=== PATIENT | female | born 1930 | race Caucasian/White ===

== ENCOUNTER → 2016-08-19 | Outpatient (CLI) | payer MEDICARE, OTHER ==
[2016-08-19 11:27] LABS: BASO # 0.1 x10^3/uL (0.0-0.2); BASO % 1 % (0-3); EOS % 3 % (0-3); HEMATOCRIT 44.7 % (36.0-47.0); HEMOGLOBIN 14.9 g/dL (12.0-15.5); LYMPH # 1.9 x10^3/uL (1.0-4.8); LYMPH % 23 % (24-48); MEAN CORPUSCULAR HEMOGLOBIN 31 pg (25-35); MEAN CORPUSCULAR HGB CONC 33 g/dL (31-37); MEAN CORPUSCULAR VOLUME 93 fL (79-100); MONO % 7 % (0-9); NEUT % 67 % (31-73); PLATELET COUNT 229 x10^3/uL (140-400); RED CELL DISTRIBUTION WIDTH 13.3 % (11.5-14.5); WHITE BLOOD COUNT 8.3 x10^3/uL (4.0-11.0)
== END | disposition home or self-care (01) ==
LOC: LAB 11:01
PROVIDERS: ATTEND Family Medicine
DX: R06.09 Other forms of dyspnea (principal)
CPT/HCPCS: 36415; 85027

== ENCOUNTER → 2019-02-07 | Outpatient (CLI) | payer MEDICARE, OTHER ==
--- NOTE | 2019-02-07 14:35 | RAD ---
EXAM: Left hip, 2 views. HISTORY: Bursitis. COMPARISON: None. FINDINGS: 2 views of the left hip are obtained. There is no fracture, dislocation or subluxation. There are vascular calcifications and vascular clips. IMPRESSION: No acute osseous finding. Electronically signed by: Katerine Chau MD (02/07/2019 2:32 PM) [email or web address]
== END | disposition home or self-care (01) ==
LOC: RAD 08:02
PROVIDERS: ATTEND Family Medicine
DX: M25.852 Other specified joint disorders, left hip (principal); M71.552 Other bursitis, not elsewhere classified, left hip
CPT/HCPCS: 73502

== ENCOUNTER → 2020-01-05 | Outpatient (CLI) | payer MEDICARE ==
--- NOTE | 2020-01-05 15:55 | RAD ---
C-spine 5 views INDICATION: Neck pain COMPARISON: None. FINDINGS: AP, lateral, odontoid and bilateral oblique views of the cervical spine were obtained in the upright position. They show subtle anterolisthesis of C5 on C6 and minimal retrolisthesis of C3 on C4. The lateral masses of C1 appear symmetrically aligned with C2 on the odontoid view. The bones are demineralized and show relatively mild multilevel facet hypertrophic changes. Incidental sternotomy sutures are noted. No fracture or aggressive appearing osseous lesions are identified. The odontoid process is somewhat obscured by the occiput on the odontoid view. There are minimal disc degenerative change at C4-C5 and C5-C6, manifested as mild disc space narrowing. No bony central canal stenosis. The oblique views show mild bilateral foraminal narrowing most conspicuous on the right at C2-C3 and C4-C5, and on the left at C4-C5. No prevertebral soft tissue swelling is apparent. IMPRESSION: Multilevel cervical degenerative spondylosis with no acute fracture or aggressive appearing osseous lesions shown on these images. These degenerative changes result in varying degrees of foraminal stenosis. Central canal is not as well evaluated. Note also that the odontoid process is suboptimally visualized on the odontoid view. If there is concern for possible age-indeterminate odontoid process fracture, CT could help assess further. Electronically signed by: Jono Arredondo MD (01/05/2020 3:52 PM) [id number]
== END | disposition home or self-care (01) ==
LOC: RAD 09:14
PROVIDERS: ATTEND Family Medicine
DX: M47.812 Spondylosis without myelopathy or radiculopathy, cervical region (principal); M43.12 Spondylolisthesis, cervical region; M48.02 Spinal stenosis, cervical region
CPT/HCPCS: 72050

== ENCOUNTER → 2020-02-13 | Outpatient (CLI) | payer MEDICARE ==
[~2020-02-13] MED LIST: ALBU2.5V8 IH; AMLO-187 PO; ASPI-630 PO; ATOR20TA58 PO; CARV25TA2 PO; DICL100G54 TP; FAMO20TA5 PO; GLIM1TAB7 PO; HYDR12.575 PO; IOHEXOL 180 MG/ML 10 ML VIAL. ONE; LANS30CA PO; methylPREDNISolone ACETATE 40 MG/ML VIAL. ONE; methylPREDNISolone ACETATE 80 MG/ML VIAL. ONE
--- NOTE | 2020-02-13 12:38 | PDOC1 ---
INITIAL PAIN CONSULT DATE OF SERVICE: DOS: DATE: 02/13/20 TIME: 12:29 CHIEF COMPLAINT: Chief Complaint: Neck and right greater than left upper extremity pain HISTORY OF PRESENT ILLNESS: 89-year-old female presents history of pain base the neck and shoulders upper extremities right greater than left for about 3 years worse over the past 6 months or so with radiating pain in the base the neck shoulders anterior deltoid lateral deltoid biceps into the forearms with numbness in the right hand. Patient reports no specific injury or accident that she is aware of but laying down is the worst is keeps her awake at night as she likes to lay on her right side patient reports it wakes her from sleep release twice a night does not affect her bowel bladder control or ability to walk is worse with repetitive exercises using her right upper extremity and she is right-handed. He reports lifting weights or items holding things at her side can increase the pain as well but mostly at night when she is to find a comfortable position to sleep. Patient has had some acromioclavicular joint injections which are helpful for the shoulders but not help the pain in the neck or further down the arm especially into the right hand patient is doing some exercise and stretching with her neck on her own has had some physical therapy in the past but nothing recently patient reports he is taking Tylenol as well as diclofenac both of which do decrease the pain by about 20 to 25%. Had MRI scan of the cervical spine dated January 23, 2020 showed degenerative changes with foraminal narrowing C4-5 disc osteophyte complex also discussed 5 complex C5-6 with buckling of ligamentum flavum without canal stenosis 6 7 shows disc osteophyte complex as well without stenosis. Patient reports no loss of motor function but significant fatigability with right upper extremity and tingling of the right hand and has been dropping items occasionally but not frequently. Patient scribes the pain as throbbing with burning pain tingling numbness in the right hand radiating in the right upper extremity also on the left more significant on the right and again worse at night. PAST MEDICAL HISTORY: PMH: Type 2 diabetes, hypertension, cigarette smoking, coronary artery disease, hyperlipidemia, gastroesophageal reflux disease, arthritis, osteopenia PREVIOUS SURGERIES: Past Surgical Hx: Partial colectomy, bilateral cataract extraction, cholecystectomy, nephrectomy, coronary artery bypass grafting CURRENT MEDICATIONS: Current Meds: Lansoprazole, carvedilol, amlodipine, famotidine, hydrochlorothiazide, glimepiride, atorvastatin, diclofenac, daily baby aspirin, ProAir inhaler ALLERGIES; Allergies: Uncoded Allergies: pcn (Adverse Reaction, 02/13/20) FAMILY HISTORY: Family Hx: No major medical problems or conditions that she is aware of SOCIAL HISTORY: Social Hx: Patient does not chandana alcohol quit smoking 30 years ago, does not use any illegal illicit or recreational drugs, is lives locally in [facility] and is currently retired REVIEW OF SYSTEMS: ROS: Positive for those items mentioned in history of present illness, all systems are reviewed, otherwise negative, is complete full and well-documented on patient's chart PHYSICAL EXAM: VS: Blood pressure is 141/90 pulse 75 respirations 16 temperature is 98.2 F height is 5 foot 1 inch weight is 148 pounds PE: PHYSICAL EXAMINATION: GENERAL: The patient is awake, alert, oriented, appropriate, very pleasant demeanor HEENT: Shows normocephalic, atraumatic. Extraocular movements are intact and symmetrical. Oral cavity: Mucous membranes moist and pink. NECK: Shows anterior throat supple without palpable lymphadenopathy noted. Swallow reflex symmetrical. CHEST: Shows normal on inspection. Breath sounds are clear bilaterally, no rales rhonchi wheezes auscultated. HEART: Shows S1, S2 clear. No murmurs auscultated. ABDOMEN: Soft, nontender, nondistended, obese. No palpable organomegaly is noted. No rebound or guarding demonstrated. BACK: Shows spine grossly in the midline. Normal-appearing cervical lordotic curvature. Cervical spine shows good rotation motion both laterally greater than 45 degrees closer to 90 degrees without significant difficulty also full extension full forward flexion with some mild pain with forward flexion only. Posterior cervical musculature shows symmetrical on inspection and palpation some mild tenderness diffusely throughout the middle and lower decrease the pa raspinous muscle slightly more on the right than the left also into the superior medial trapezius but without trigger points without atrophy hypertrophy or asymmetry. There is increased thoracic kyphosis, some minor flattening of the lumbar lordotic curvature. Lumbar paraspinous muscles show symmetrical on inspection, on palpation shows some moderate tenderness diffusely throughout the upper, middle and lower distribution of the paraspinous muscles bilaterally without specific trigger points, without radiation of pain. The patient has good rotational motion of the lumbar spine, both laterally as well as extension and flexion without significant difficulty. No tenderness over the spinous processes, sacrum or sacroiliac regions. EXTREMITIES: Upper extremities show deep tendon reflexes 2+ in the biceps and triceps tendons. Motor exam is 3-4 on a scale of 5 with right design agent, biceps and tricep flexion and 5/5 on the left. Peripheral pulses are 2+ radial. No peripheral edema is noted bilaterally. Upper extremities are warm and dry to touch, equal in color and appearance. SKIN: Shows warm and dry, good turgor. No edema. No sores, rashes or bruising throughout. IMPRESSION: Impression: 89-year-old female with long history neck and bilateral extremity pain right greater than left in a radicular fashion worse over the past 6 months MRI scan cervical spine as noted Hypertension Diabetes Arthritis Coronary artery disease Plan: Options were discussed with the patient including conservative medical management physical therapies and interventional techniques. Patient would like to pursue interventional techniques, we discussed a cervical epidural steroid injection using description as well as anatomical models to describe the procedure. Risks were discussed including but not limited to: Bleeding, infection, possibility of epidural hematoma and subsequent neurological compromise, dural puncture, headaches, spinal cord and/or nerve damage, side effects of steroid medication, and poor results regarding pain control. Patient understands wished to proceed. Patient will return to the clinic in approximate 2 weeks for follow-up was counseled as return appointment activity level and side effects to be aware of. Procedure cervical epidural steroid injection at the C6-7 level, using local anesthetic under sterile prep and drape using C-arm fluoroscopic guidance under local anesthesia medications injected ; 120 mg Depo-Medrol + 5 mL normal saline and 2 mL contrast; condition at discharge is stable patient tolerated procedure well. and had no complications FERDINAND MERIDA MD Feb 13, 2020 12:38
== END ==
LOC: PNCL 10:05
PROVIDERS: ATTEND Anesthesiology
DX: M54.2 Cervicalgia (principal); I10 Essential (primary) hypertension; E11.9 Type 2 diabetes mellitus without complications; M19.90 Unspecified osteoarthritis, unspecified site; I25.10 Atherosclerotic heart disease of native coronary artery without angina pectoris; K21.9 Gastro-esophageal reflux disease without esophagitis; E78.5 Hyperlipidemia, unspecified; M79.602 Pain in left arm; Z87.891 Personal history of nicotine dependence; Z90.49 Acquired absence of other specified parts of digestive tract; Z98.890 Other specified postprocedural states; Z79.82 Long term (current) use of aspirin; Z79.899 Other long term (current) drug therapy; Z79.84 Long term (current) use of oral hypoglycemic drugs
CPT/HCPCS: 62321; J1030; J1040; Q9965

== ENCOUNTER → 2020-03-01 | Outpatient (CLI) | payer MEDICARE ==
[~2020-03-01] MED LIST changes: +BUPIVACAINE MPF 0.25% 10 ML VIAL. ONE; -methylPREDNISolone ACETATE 40 MG/ML VIAL. ONE; -methylPREDNISolone ACETATE 80 MG/ML VIAL. ONE
--- NOTE | 2020-03-01 10:04 | PDOC ---
Progress Note - Pain Clinic Date of Service: DOS: DATE: 03/01/20 TIME: 09:57 Diagnosis: Dx: Cervical radiculopathy with cervical degenerative disc disease Left shoulder joint pain with osteoarthritis History or Present Illness: HPI: 89-year-old female returns follow-up status post cervical epidural to injection x1. Patient reports about 50% improvement in the right shoulder base the neck however she was lifting a 1 gallon bottle of Clorox bleach about a week ago with significant pain with her left arm and now pain in the left shoulder which is much more severe than the neck and the right shoulder. Patient reports initially she was doing much better with increased activity at home doing household activities try with greater ease and comfort sleeping better at night now the pain is waking her left shoulder every 2-3 hours or so. Patient reports it is worse with lifting items worse with straining or reaching forward and she cannot move her arm for most the first week and now she started to move it slightly still very tender both anteriorly and posteriorly in the shoulder itself. Patient reports is aching and painful on and off in intensity with act ivity. Patient rates her pain is a six on scale ten at all times average worst and its least is a six today. Patient reports no new motor or sensory deficits or other complaints. Physical Exam: VS: Blood pressure is 135/92 pulse seventy-three respirations twenty temperature is 90.3 F height is 5 foot 1 inch weight is 148 pounds PE: PHYSICAL EXAMINATION: GENERAL: The patient is awake, alert, oriented, appropriate, very pleasant demeanor HEENT: Shows normocephalic, atraumatic. Extraocular movements are intact and symmetrical. NECK: Shows anterior throat supple without palpable lymphadenopathy noted. Swallow reflex symmetrical. CHEST: Shows normal on inspection. Breath sounds are clear bilaterally. HEART: Shows S1, S2 clear. No murmurs auscultated. ABDOMEN: Soft, nontender, nondistended, obese. No palpable organomegaly is noted. BACK: Shows spine grossly in the midline. Normal-appearing cervical lordotic curvature. Neck shows good rotation motion cervical spine both laterally greater than 45 degrees well is full extension full forward flexion without significant difficulty paraspinous muscular shows symmetrical with some moderate tenderness inferiorly in the superior aspect of the trapezius as well as the inferior cervical paraspinous musculature but without radiation or asymmetry. There is slightly increased thoracic kyphosis, some minor flattening of the lumbar lordotic curvature. The patient has good rotational motion of the lumbar spine, both laterally as well as extension and flexion without significant difficulty. No tenderness over the spinous processes, sacrum or sacroiliac regions. EXTREMITIES: Upper extremities show deep tendon reflexes 2+ in the biceps and triceps tendons. Motor exam is four on a scale of 5 with right property management specialist, biceps and tricep flexion and 5/5 on the left. Peripheral pulses are 2+ radial. No pe ripheral edema is noted bilaterally. Upper extremities are warm and dry to touch, equal in color and appearance. Patient's left shoulder shows significant tenderness with palpation over the anterior and posterior aspect of the deltoid and most significantly on the anterior aspect of the biceps tendon and over the glenohumeral joint. Patient shows good abduction but only to about 45 degrees without significant pain in the left shoulder. No specific tenderness over the acromioclavicular joint with palpation. SKIN: Shows warm and dry, good turgor. No edema. No sores, rashes or bruising throughout. Procedure: Procedure: Options were discussed with the patient. Patient's old chart was reviewed as her current medication regimen updated current review of systems updated today as well. We will proceed with a left intra-articular glenohumeral shoulder joint injection with fluoroscopic guidance. Risks were discussed including but not limited to bleeding infection possibility of intravascular injection sequelae spread to local anesthetic numbness side effects steroid medication exposure fluoroscopy and poor results chronic pain control. Patient understands wished to proceed. Patient return to clinic in approximate 2 weeks for follow- up was counseled as to return appointment activity level and side effects to be aware of. Medication Injected: Med Injected: Under sterile prep and drape patient in supine position using C-arm fluoroscopic guidance left shoulder was visualized and using 1% lidocaine topically anesthetized over the glenohumeral joint. Using 25-gauge needle under direct visualization fluoroscopic guidance was inserted into the glenohumeral joint on the left with negative aspiration. 1 cc of contrast was injected with good spread within the glenohumeral joint without washout. At this time 3 cc of 0.25% bupivacaine and 80 mg Depo-Medrol was then injected to the joint needle was then removed sterile bandage was applied. Patient tolerated procedure well and had no complications. Condition at Discharge: Condition at Discharge: Condition at discharge is stable, patient tolerated procedure well and had no complications. FERDINAND EMRIDA MD Mar 01, 2020 10:03
== END | disposition home or self-care (01) ==
LOC: PNCL 08:47
PROVIDERS: ATTEND Anesthesiology
DX: M19.012 Primary osteoarthritis, left shoulder (principal); M50.10 Cervical disc disorder with radiculopathy, unspecified cervical region; Z79.899 Other long term (current) drug therapy; Z88.1 Allergy status to other antibiotic agents; Z98.890 Other specified postprocedural states
CPT/HCPCS: 20610; 77002; J3490; Q9965

== ENCOUNTER → 2020-03-18 | Outpatient (CLI) | payer MEDICARE ==
[~2020-03-18] MED LIST changes: -BUPIVACAINE MPF 0.25% 10 ML VIAL. ONE; +methylPREDNISolone ACETATE 40 MG/ML VIAL. ONE; +methylPREDNISolone ACETATE 80 MG/ML VIAL. ONE
--- NOTE | 2020-03-18 10:36 | PDOC ---
Progress Note - Pain Clinic Date of Service: DOS: DATE: 03/18/20 TIME: 10:32 Diagnosis: Dx: Cervical radiculopathy with cervical degenerative disc disease Left shoulder joint pain with osteoarthritis History or Present Illness: HPI: 89-year-old female returns follow-up status post left intra-articular shoulder joint injection and cervical epidural to injection x1. Patient reports that shoulder still painful but is improved by about 25% with her neck and shoulders are doing better after the first injection about 50%. Patient reports still significant pain bilateral shoulders now more on the right than the left radiating to the upper extremity into the bicep tricep and into the anterior forearm as well as in the fingers with numbness and tingling in the fingers the right hand greater than left. Patient reports some radiation the left arm as well as well as the base of the neck but more significant on the right. Patient describes pain as tingling aching on and off in intensity worse with activity reaching lifting items repetitive motions with the upper extremities. Patient ports awakened from sleep about every 3-4 hours at night especially she lays on her right side. Patient reports the pain is an 8 on scale 10 is worse over the past week 7 on average 5 its least and is a 7 today. Patient reports no new motor or sensory deficits. Physical Exam: VS: Pressure is 169/89 pulse 73 respirations 18 temperature 98.2 F height 5 foot 1 his weight is 1 4 8 pounds PE: PHYSICAL EXAMINATION: GENERAL: The patient is awake, alert, oriented, appropriate, very pleasant demeanor HEENT: Shows normocephalic, atraumatic. Extraocular movements are intact and symmetrical. Oral cavity: Mucous membranes moist and pink. NECK: Shows anterior throat supple without palpable lymphadenopathy noted. Swallow reflex symmetrical. CHEST: Shows normal on inspection. Breath sounds are clear bilaterally. HEART: Shows S1, S2 clear. No murmurs auscultated. ABDOMEN: Soft, nontender, nondistended, obese. No palpable organomegaly is noted. No rebound or guarding demonstrated. BACK: Shows spine grossly in the midline. Normal-appearing cervical lordotic curvature. Cervical spine shows good rotation of motion both laterally as well as full extension full forward flexion without significant increase in pain or radiation. Posterior cervical musculature shows symmetrical on inspection with palpation some moderate tenderness only diffusely in the inferior aspect the cervical paraspinous muscles as well as in the superior medial trapezius slightly more tender on the right and left but without specific trigger points atrophy or hypertrophy. There is slightly increased thoracic kyphosis, some minor flattening of the lumbar lordotic curvature. EXTREMITIES: Upper extremities show deep tendon reflexes 2+ in the biceps and triceps tendons. Motor exam is 3 on a scale of 5 with right electric meter tester shop strength, biceps and triceps flexion and 4/5 on the left. Peripheral pulses are 2+ radial. No peripheral edema is noted bilaterally. Upper extremities are warm and dry to touch, equal in color and appearance. SKIN: Shows warm and dry, good turgor. No edema. No sores, rashes or bruising throughout. Procedure: Procedure: Options were discussed with the patient. Patient's chart reviews her current medication regimen updated current review of systems updated today as well. We will proceed with a second in the series cervical epidural steroid injection today with fluoroscopic guidance. Risks were discussed including but not limited to: Bleeding, infection, possibility of epidural hematoma and subsequent neurological compromise, dural puncture, headaches, spinal cord and/or nerve damage, side effects of steroid medication, and poor results regarding pain control. Patient understands wished to proceed. Return to clinic in approximately 2 weeks for follow-up. Patient was counseled as to return appointment activity level and side effects to be aware of. Medication Injected: Med Injected: Procedure cervical epidural steroid injection at the C6-7 level, using local anesthetic under sterile prep and drape using C-arm fluoroscopic guidance under local anesthesia medications injected ; 120 mg Depo-Medrol + 5 mL normal sali ne and 2 mL contrast; condition at discharge is stable patient tolerated procedure well. and had no complications Condition at Discharge: Condition at Discharge: Condition at discharge stable, patient tolerated seizure well had no complications. FERDINAND MERIDA MD Mar 18, 2020 10:36
== END | disposition home or self-care (01) ==
LOC: PNCL 09:44
PROVIDERS: ATTEND Anesthesiology
DX: M50.10 Cervical disc disorder with radiculopathy, unspecified cervical region (principal); M19.012 Primary osteoarthritis, left shoulder; Z79.82 Long term (current) use of aspirin; Z79.899 Other long term (current) drug therapy; Z88.8 Allergy status to other drugs, medicaments and biological substances
CPT/HCPCS: 62321; J1030; J1040; Q9965

== ENCOUNTER → 2020-04-01 | Outpatient (CLI) | payer MEDICARE ==
--- NOTE | 2020-04-01 08:25 | PDOC ---
Progress Note - Pain Clinic Date of Service: DOS: DATE: 04/01/20 TIME: 08:21 Diagnosis: Dx: Cervical radiculopathy with cervical degenerative disc disease Lumbar radiculopathy with lumbar degenerative disease Left shoulder joint pain with osteoarthritis History or Present Illness: HPI: 89-year-old female returns follow-up status post cervical epidural to injection x2 and left shoulder joint injection. Patient reports doing very well with each of these about 80% improvement in the shoulder and the neck and upper extremiti es. Patient chief complaint today is low back pain and right lower extremity pain pain rating into the posterior gluteus posterior lateral thigh and lateral anterior medial lower leg patient reports its been worse for about 10 days she got off the couch awkwardly and has some significant pain in her low back which is fairly sudden. Patient rates pain is a 10 on scale 10 at all times worst least an average and is a 10 today. Patient reports that sharp and stabbing can be severe in the low back and the right leg as well. Patient reports no new motor or sensory deficits previously doing much better with her shoulder and her upper extremities but now the back is most significant. Patient reports no bowel or bladder incontinence no new motor or sensory deficits describes the pain as stabbing and severe in the low back and right leg. No overt motor loss but significant fatigability. Physical Exam: VS: Pressure is 155/79 pulse 69 respirations 18 temperature 98.4 F height is 5 foot 1 inch weight is 147 pounds PE: PHYSICAL EXAMINATION: GENERAL: The patient is awake, alert, oriented, appropriate, very pleasant demeanor HEENT: Shows normocephalic, atraumatic. Extraocular movements are intact and symmetrical. Patient wearing eyeglasses. Oral cavity: Mucous membranes moist and pink. NECK: Shows anterior throat supple without palpable lymphadenopathy noted. Swallow reflex symmetrical. CHEST: Shows normal on inspection. Breath sounds are clear bilaterally. HEART: Shows S1, S2 clear. No murmurs auscultated. ABDOMEN: Soft, nontender, nondistended, obese. No palpable organomegaly is noted. No rebound or guarding demonstrated. BACK: Shows spine grossly in the midline. Normal-appearing cervical lordotic curvature. Cervical spine shows full rotation motion both laterally as well as full extension full forward flexion without significant pain reported. There is slightly increased thoracic kyphosis, some minor flattening of the lumbar lordotic curvature. Lumbar paraspinous muscles show symmetrical on inspection, on palpation shows some moderate tenderness diffusely throughout the middle and lower distribution of the paraspinous muscles without specific trigger points, without radiation of pain. The patient has good rotational motion of the lumbar spine, both laterally as well as extension and flexion without significant difficulty. No tenderness over the spinous processes, sacrum or sacroiliac regions. EXTREMITIES: Lower extremities show deep tendon reflexes 1+ in the patellar and tendo calcaneus tendons. Motor exam is 4 on a scale of 5 with right dorsiflexion, extension, quadriceps and hamstring flexion and 4/5 on the left. Peripheral pulses are 1+ posterior tibial. No peripheral edema is noted bilaterally. Lower extremities are warm and dry to touch, equal in color and appearance. Upper extremities show deep tendon reflexes at 1+ in the bicep tricep tendons motor exam is 4on a scale of 5 on the right and 4 out of 5 on the left. SKIN: Shows warm and dry, good turgor. No edema. No sores, rashes or bruising throughout. Procedure: Procedure: Options discussed with the patient. Patient's old chart reviewed as her current medication regimen updated current review of systems updated today as well. We will proceed with a lumbar epidural steroid injection today with fluoroscopic guidance. Risks were discussed including but not limited to: Bleeding, infection, possibility of epidural hematoma and subsequent neurological compromi se, dural puncture, headaches, spinal cord and/or nerve damage, side effects of steroid medication, and poor results regarding pain control. Patient understands wished to proceed. Patient will return to clinic in approximate 2 weeks for follow-up, was counseled as to return appointment activity level and side effects to be aware of. Medication Injected: Med Injected: Procedure is lumbar epidural steroid injection under local anesthetic using sterile prep and drape at the L4-5 level using C-arm fluoroscopic guidance in both AP and lateral views medications injected is 120 mg Depo-Medrol + 10 mL preservative-free normal saline and 2 mL contrast- condition at discharge is stable patient tolerated procedure well had no complications. Condition at Discharge: Condition at Discharge: Condition at discharge stable, patient tolerated procedure well and had no complications. FERDINAND MERIDA MD Apr 01, 2020 08:25
== END | disposition home or self-care (01) ==
LOC: PNCL 07:44
PROVIDERS: ATTEND Anesthesiology
DX: M51.16 Intervertebral disc disorders with radiculopathy, lumbar region (principal); M50.10 Cervical disc disorder with radiculopathy, unspecified cervical region; M19.012 Primary osteoarthritis, left shoulder; Z79.82 Long term (current) use of aspirin; Z79.899 Other long term (current) drug therapy; Z98.890 Other specified postprocedural states; Z88.1 Allergy status to other antibiotic agents; Z88.8 Allergy status to other drugs, medicaments and biological substances
CPT/HCPCS: 62323; J1030; J1040; Q9965